=== PATIENT | female | born 1955 | race Caucasian/White ===

== ENCOUNTER → 2016-09-12 | Day surgery (SDC) | payer BC, MEDICAID, OTHER ==
[2016-09-12 11:30] VITALS: BP 145/90
--- NOTE | 2016-09-12 13:20 | PCM.SN ---
- Free Text/Narrative Note: Date: 09/12/16 Start: 929 Stop: 4 Time Out: 934 Procedure: PICC Line placement for Chemotherapy Treatment Diagnosis: Anal Cancer Anesthesia requested for PICC line placement. Patient educated on risk/benefits , allergies reviewed, medication list reviewed, patient agrees to proceed, consent obtained. Patient positioned in supine position. Right arm prepped with 3 chloroprep's, 20 gauge angiocatheter placed without difficulty, sterile drapes placed, and sterile gown, gloves used, along with cap and mask. (Sterile Technique Noted) MicroIntroducer kit used: [facility] PICC 4 mal[place] catheter single lumen advanced without difficulties noted. REF: [id number] LOT: [id number] EXP: 11/09/2017 Catheter advanced and secured at 46cm at the skin. Catheter trimmed at 54cm. Easy blood aspiration noted and catheter flushed with 30ml's of Normal Saline. Mastisol/Steri-Strips placed, along with Tegaderm with antibacterial square noted. Stat-Lock holding device used and dressing dated. Education card given to patient, and patient tolerated procedure well. Thank-you! Palak Downs CRNA
--- NOTE | 2016-09-12 13:28 | CR ---
Chest: Portable supine view of the chest was obtained at time 10:24 AM. Study is centered to the right chest. Comparison: No previous chest x-ray. Right-sided PICC line is seen. Tip lies within the superior vena cava. Heart size is normal. Mild tortuosity of the thoracic aorta is seen. Lungs that are seen appear clear. Incidental surgical clips are noted from prior cholecystectomy. Impression: 1. PICC line with tip lying in the expected region superior vena cava. Diagnostic code #2
--- NOTE | 2016-09-12 13:28 | CR ---
Chest: Portable view of the chest was obtained at time 10:27 AM. Comparison: Previous study performed earlier on the same day. PICC line again noted entering from the right side. Tip lies within the superior vena cava. Lungs are clear. Heart size and mediastinum are stable. Bony structures are grossly intact. Impression: 1. Tip of PICC line within the superior vena cava. 2. Nothing acute is seen. Diagnostic code #2
== END ==
LOC: JD.SDS 08:35
PROVIDERS: ATTEND Internal Medicine Medical Oncology
DX: C21.0 Malignant neoplasm of anus, unspecified (principal)
CPT/HCPCS: 36569; C1751

== ENCOUNTER 2016-11-30 13:31 | Emergency (ER) | payer MEDICAID ==
[2016-11-30 13:42] VITALS: BP 122/78
--- NOTE | 2016-11-30 13:51 | EDM.PDOC ---
ED HPI GENERAL MEDICAL PROBLEM - General Chief Complaint: Allergic Reaction Stated Complaint: POSS ALERGIC REACTION Time Seen by Provider: 11/30/16 13:39 Source of Information: Reports: Patient History Limitations: Reports: No Limitations - History of Present Illness INITIAL COMMENTS - FREE TEXT/NARRATIVE: The patient presents with itching. She says this started yesterday at 3pm. She has no rash except where she scratched there is some redness. She has no new detergents, soaps or lotions. She cannot eat blueberries. She did have some chock hester wine yesterday. She has no shortness of breath or swelling in her throat. Onset: Gradual Duration: Day(s): Location: Reports: Generalized Quality: Reports: Other (Itching) Severity: Moderate Improves with: Reports: None Worsens with: Reports: None Associated Symptoms: Reports: No Other Symptoms - Related Data Allergies Allergy/AdvReac Type Severity Reaction Status Date / Time No Known Allergies Allergy Verified 11/30/16 13:42 Home Meds: Home Meds Prednisone [IJD: predniSONE] 40 mg PO WITHBREAKFAST #10 tab 11/30/16 [Rx] Social & Family History - Tobacco Use Smoking Status *Q: Former Smoker Used Tobacco, but Quit: Yes Month Tobacco Last Used: one month ago Second Hand Smoke Exposure: No - Caffeine Use Caffeine Use: Reports: None - Recreational Drug Use Recreational Drug Use: No ED ROS ALLERGIC REACTION - Review of Systems Review Of Systems: See Below Constitutional: Reports: No Symptoms HEENT: Reports: No Symptoms Respiratory: Reports: No Symptoms Cardiovascular: Reports: No Symptoms Endocrine: Reports: No Symptoms GI/Abdominal: Reports: No Symptoms : Reports: No Symptoms Musculoskeletal: Reports: No Symptoms Skin: Reports: Other (Itching) ED EXAM GENERAL NO PERIP PULSE - Physical Exam Exam: See Below Exam Limited By: No Limitations General Appearance: Alert, No Apparent Distress Ears: Normal External Exam Nose: Normal Inspection Throat/Mouth: Normal Inspection Head: Atraumatic, Normocephalic Neck: Normal Inspection Respiratory/Chest: No Respiratory Distress, Lungs Clear, Normal Breath Sounds Cardiovascular: Regular Rate, Rhythm, No Edema, No Murmur GI/Abdominal: Soft, Non-Tender, No Organomegaly, No Mass Back Exam: Normal Inspection Extremities: Normal Inspection Skin Exam: Other (There is some erythema to her chest back and arms from her itching.) Course - Vital Signs Last Recorded V/S: Last Vital Signs Temp 98.1 F 11/30/16 13:39 Pulse 100 11/30/16 13:39 Resp 18 11/30/16 13:39 BP 122/78 11/30/16 13:39 Pulse Ox 97 11/30/16 13:39 - Re-Assessments/Exams Free Text/Narrative Re-Assessment/Exam: 11/30/16 13:50 She appears to be reacting to something. I will get her on some prednisone, benadryl and pepcid. Departure - Departure Time of Disposition: 13:55 Disposition: Home, Self-Care 01 Condition: good Clinical Impression: Allergic reaction Qualifiers: Encounter type: initial encounter Qualified Code(s): T78.40XA - Allergy, unspecified, initial encounter - Discharge Information Prescriptions: Prednisone [IJD: predniSONE] 40 mg PO WITHBREAKFAST #10 tab Referrals: Greg Duran MD [Primary Care Provider] - 1 Week Forms: ED Department Discharge Additional Instructions: Take the prednisone 2 pills daily for 5 days. Take pepcid 20mg daily for 5 days. Take benadryl 50mg every 6 hours as needed for itching. Please return if you are worse such as swelling in your throat or trouble breathing.
== END 2016-11-30 14:05 | disposition home or self-care (01) ==
LOC: JD.ED 13:31
DX: T78.40XA Allergy, unspecified, initial encounter (principal); Z87.891 Personal history of nicotine dependence
CPT/HCPCS: 99283

== ENCOUNTER 2017-02-06 10:15 | Inpatient (IN) | payer MEDICAID ==
--- NOTE | 2017-02-06 10:53 | EDM.PDOC ---
ED HPI GENERAL MEDICAL PROBLEM - General Chief Complaint: Respiratory Problem Stated Complaint: SOB Time Seen by Provider: 02/06/17 10:44 - History of Present Illness INITIAL COMMENTS - FREE TEXT/NARRATIVE: 1-year-old female presents emergency room with shortness of breath. She is brought in by EMS she was found to be hypoxic at 84%. Patient states the shortness of breath has been going on at least 2 days the timing of this is somewhat vague she denies a sudden onset. The patient has had lots of fatigue following chemotherapy and radiation for colorectal cancer this last winter. Patient was diagnosed with colorectal cancer in July this was followed up with radiation therapy she had a dose of chemotherapy at the onset of the radiation and with the last dose of the radiation. Patient has been somewhat fatigued since this time. Patient states she was diagnosed with stage II colorectal cancer. Patient denies a worsening cough she denies any fevers or chills. She does have a history of a anemia. She is treated for hypertension otherwise denies other medical issues she quit smoking a couple months ago. - Related Data Allergies Allergy/AdvReac Type Severity Reaction Status Date / Time No Known Allergies Allergy Verified 02/06/17 10:27 Home Meds: Home Meds Aspirin [Halfprin] 81 mg PO DAILY 02/06/17 [History] Losartan [Cozaar] 100 mg PO DAILY 02/06/17 [History] amLODIPine [Norvasc] 10 mg PO DAILY 02/06/17 [History] Past Medical History Other HEENT History: wears glasses Cardiovascular History: Reports: Hypertension Gastrointestinal History: Reports: Chronic Diarrhea, GERD Genitourinary History: Reports: Urinary Incontinence [employer] History: Reports: Endocrine/Metabolic History: Reports: Osteoporosis Oncologic (Cancer) History: Reports: Other (See Below) Other Oncologic History: anal - Past Surgical History GI Surgical History: Reports: Cholecystectomy, Colonoscopy Other GI Surgeries/Procedures: anal tumor removed x 2 Social & Family History - Tobacco Use Smoking Status *Q: Current Every Day Smoker Years of Tobacco use: 40 Packs/Tins Daily: 1 Used Tobacco, but Quit: Yes Month Tobacco Last Used: october Second Hand Smoke Exposure: No - Caffeine Use Caffeine Use: Reports: Coffee - Recreational Drug Use Recreational Drug Use: No ED ROS GENERAL - Review of Systems Review Of Systems: See Below Constitutional: Denies: Fever, Chills HEENT: Reports: No Symptoms Respiratory: Reports: Shortness of Breath. Denies: Wheezing, Pleuritic Chest Pain, Cough, Sputum Cardiovascular: Denies: Chest Pain, Edema, Palpitations, Syncope GI/Abdominal: Reports: No Symptoms : Reports: No Symptoms Musculoskeletal: Reports: No Symptoms Neurological: Reports: No Symptoms ED EXAM, GENERAL - Physical Exam Exam: See Below Exam Limited By: No Limitations General Appearance: Alert, No Apparent Distress Eye Exam: Bilateral Eye: Normal Inspection Ears: Normal External Exam, Normal Canal, Hearing Grossly Normal, Normal TMs Nose: Normal Inspection, Normal Mucosa Throat/Mouth: Normal Inspection, Normal Lips, Normal Oropharynx. No: Perioral Cyanosis Neck: Normal Inspection, Supple, Non-Tender, Full Range of Motion. No: Lymphadenopathy (L), Lymphadenopathy (R) Respiratory/Chest: No Respiratory Distress, Other (Slightly diminished breath sounds faint intermittent bibasilar crackles no significant wheezes) Cardiovascular: Regular Rate, Rhythm, No Edema, No Murmur GI/Abdominal: Normal Bowel Sounds, Soft, Non-Tender EKG INTERPRETATION EKG Date: 02/06/17 Rhythm: NSR [place]: Normal P-Wave: Present QRS: Other (Low voltage) ST-T: Normal QT: Normal EKG Interpretation Comments: Borderline EKG Course - Vital Signs Last Recorded V/S: Last Vital Signs Temp 36.2 C 02/06/17 10:33 Pulse 80 02/06/17 10:33 Resp 15 02/06/17 10:33 BP 138/94 H 02/06/17 10:33 Pulse Ox 92 L 02/06/17 11:11 - Orders/Labs/Meds Orders: Active Orders 24 hr Category Date Time Status EKG Documentation Completion [RC] STAT Care 02/06/17 14:19 Active RT Aerosol Therapy [RC] ASDIRECTED Care 02/06/17 10:55 Active Ang Chest [CT] Stat Exams 02/06/17 13:03 Taken CULTURE BLOOD [BC] Stat Lab 02/06/17 14:18 Ordered CULTURE BLOOD [BC] Stat Lab 02/06/17 14:18 Ordered MYCOPLASMA PNEUMONIAE IGM AB [CHEM] Stat Lab 02/06/17 10:55 Received Sodium Chloride 0.9% [Normal Saline] 100 ml Med 02/06/17 13:15 Active IV ASDIRECTED Sodium Chloride 0.9% [Saline Flush] Med 02/06/17 13:06 Active 10 ml FLUSH ONETIME PRN cefTRIAXone [Rocephin] Med 02/06/17 14:30 Once 1,000 mg IVPUSH ONETIME ONE Blood Culture x2 Reflex Set [OM.PC] Stat Oth 02/06/17 14:18 Ordered Medication Orders Ceftriaxone Sodium (Rocephin) 1,000 mg IVPUSH ONETIME ONE Stop: 02/06/17 14:31 Sodium Chloride (Normal Saline) 100 mls @ 80 mls/hr IV ASDIRECTED JILLIAN Last Admin: 02/06/17 13:24 Dose: 80 mls/hr Sodium Chloride (Saline Flush) 10 ml FLUSH ONETIME PRN PRN Reason: IV FLUSH Last Admin: 02/06/17 13:24 Dose: 10 ml Labs: Laboratory Tests 02/06/17 02/06/17 02/06/17 Range/Units 10:55 10:55 10:55 WBC 6.82 (3.98-10.04) K/mm3 RBC 3.35 L (3.98-5.22) M/mm3 Hgb 11.6 (11.2-15.7) gm/L Hct 36.4 (34.1-44.9) % MCV 108.7 H (79.4-94.8) fl MCH 34.6 H (25.6-32.2) pg MCHC 31.9 L (32.2-35.5) g/dl RDW Std Deviation 55.7 H (36.4-46.3) fL Plt Count 317 (182-369) K/mm3 MPV 9.1 L (9.4-12.3) fl Neutrophils % (Manual) 77 H (40-60) % Band Neutrophils % 1 (0-10) % Lymphocytes % (Manual) 11 L (20-40) % Atypical Lymphs % 0 % Monocytes % (Manual) 7 (2-10) % Eosinophils % (Manual) 4 (0.7-5.8) % Basophils % (Manual) 0 L (0.1-1.2) Platelet Estimate Adequate Plt Morphology Comment Normal Polychromasia 1+ slight Macrocytosis 2+ moderate RBC Morph Comment Not Reportable PT 10.3 (8.0-13.0) SECONDS INR 0.95 APTT 29 (22-36) SECONDS Puncture Site ABG pH (7.35-7.45) ABG pCO2 (35.0-45.0) mmHg ABG pO2 (80.0-100.0) mmHg ABG HCO3 (22.0-26.0) meq/L ABG O2 Saturation (96.0-97.0) % ABG Base Excess (-2-2.0) Khris Test A-a Gradient mmHg O2 Delivery Device Oxygen Flow Rate FiO2 (21.00-100.00) % Sodium 142 (136-145) mEq/L Potassium 4.0 (3.5-5.1) mEq/L Chloride 108 H (98-107) mEq/L Carbon Dioxide 27 (21-32) mEq/L Anion Gap 11.0 (5-15) BUN 13 (7-18) mg/dL Creatinine 0.9 (0.55-1.02) mg/dL Est Cr Clr Drug Dosing 56.68 mL/min Estimated GFR (MDRD) > 60 (>60) mL/min BUN/Creatinine Ratio 14.4 (14-18) Glucose 100 (80-115) mg/dL Calcium 9.0 (8.5-10.1) mg/dL Total Bilirubin 0.5 (0.2-1.0) mg/dL AST 14 L (15-37) U/L ALT 17 (14-59) U/L Alkaline Phosphatase 67 (46-116) U/L Troponin I < 0.017 (0.00-0.056) ng/mL B-Natriuretic Peptide (0-100) pg/mL Total Protein 6.2 L (6.4-8.2) g/dl Albumin 3.2 L (3.4-5.0) g/dl Globulin 3.0 gm/dL Albumin/Globulin Ratio 1.1 (1-2) 02/06/17 02/06/17 Range/Units 10:55 10:55 WBC (3.98-10.04) K/mm3 RBC (3.98-5.22) M/mm3 Hgb (11.2-15.7) gm/L Hct (34.1-44.9) % MCV (79.4-94.8) fl MCH (25.6-32.2) pg MCHC (32.2-35.5) g/dl RDW Std Deviation (36.4-46.3) fL Plt Count (182-369) K/mm3 MPV (9.4-12.3) fl Neutrophils % (Manual) (40-60) % Band Neutrophils % (0-10) % Lymphocytes % (Manual) (20-40) % Atypical Lymphs % % Monocytes % (Manual) (2-10) % Eosinophils % (Manual) (0.7-5.8) % Basophils % (Manual) (0.1-1.2) Platelet Estimate Plt Morphology Comment Polychromasia Macrocytosis RBC Morph Comment PT (8.0-13.0) SECONDS INR APTT (22-36) SECONDS Puncture Site Lt radial ABG pH 7.45 (7.35-7.45) ABG pCO2 34.3 L (35.0-45.0) mmHg ABG pO2 63.0 L (80.0-100.0) mmHg ABG HCO3 23.2 (22.0-26.0) meq/L ABG O2 Saturation 89.5 L (96.0-97.0) % ABG Base Excess 0.1 (-2-2.0) Khris Test Positive A-a Gradient 99 mmHg O2 Delivery Device Nasal cannula Oxygen Flow Rate 3.0 FiO2 32.00 (21.00-100.00) % Sodium (136-145) mEq/L Potassium (3.5-5.1) mEq/L Chloride (98-107) mEq/L Carbon Dioxide (21-32) mEq/L Anion Gap (5-15) BUN (7-18) mg/dL Creatinine (0.55-1.02) mg/dL Est Cr Clr Drug Dosing mL/min Estimated GFR (MDRD) (>60) mL/min BUN/Creatinine Ratio (14-18) Glucose (80-115) mg/dL Calcium (8.5-10.1) mg/dL Total Bilirubin (0.2-1.0) mg/dL AST (15-37) U/L ALT (14-59) U/L Alkaline Phosphatase (46-116) U/L Troponin I (0.00-0.056) ng/mL B-Natriuretic Peptide 96 (0-100) pg/mL Total Protein (6.4-8.2) g/dl Albumin (3.4-5.0) g/dl Globulin gm/dL Albumin/Globulin Ratio (1-2) Meds: Medications Generic Name Dose Route Start Last Admin Trade Name Cruzitoq PRN Reason Stop Dose Admin Ceftriaxone Sodium 1,000 mg 02/06/17 14:30 Rocephin IVPUSH 02/06/17 14:31 ONETIME ONE Sodium Chloride 100 mls @ 80 mls/hr 02/06/17 13:15 02/06/17 13:24 Normal Saline IV 80 mls/hr ASDIRECTED JILLIAN Administration Sodium Chloride 10 ml 02/06/17 13:06 02/06/17 13:24 Saline Flush FLUSH 10 ml ONETIME PRN Administration IV FLUSH Discontinued Medications Generic Name Dose Route Start Last Admin Trade Name Cruzitoq PRN Reason Stop Dose Admin Albuterol/Ipratropium 3 ml 02/06/17 10:55 02/06/17 11:11 Duoneb 3.0-0.5 Mg/3 Ml NEB 02/06/17 10:56 3 ml ONETIME ONE Administration Iopamidol 100 ml 02/06/17 13:06 02/06/17 13:24 [id number] (76%) IVPUSH 02/06/17 13:07 60 ml ONETIME ONE Administration - Re-Assessments/Exams Free Text/Narrative Re-Assessment/Exam: 02/06/17 14:29 The cause of this patient's hypoxia is unknown. Chest x-ray showed some mild pulmonary vascular congestion BNP normal. With her history of cancer this is followed up with a CTA that was not diagnostic it did show a couple small bilateral pleural effusions no PEs soft tissue fullness within the right hilum subcarina and within the pretracheal and paratracheal regions most likely due to prior adenopathy and some bibasilar atelectasis adjacent to the pleural effusions. Case discussed with Dr. Mckenzie. MCG pending. Mycoplasma level pending should be started empirically on antibiotics. Departure - Departure Time of Disposition: 14:26 Disposition: Admitted As Inpatient 66 Clinical Impression: Hypoxia, Shortness of breath - Discharge Information Forms: ED Department Discharge - My Orders Last 24 Hours: My Active Orders 02/06/17 10:55 RT Aerosol Therapy [RC] ASDIRECTED MYCOPLASMA PNEUMONIAE IGM AB [CHEM] Stat 02/06/17 13:03 Ang Chest [CT] Stat 02/06/17 13:06 Sodium Chloride 0.9% [Saline Flush] 10 ml FLUSH ONETIME PRN 02/06/17 13:15 Sodium Chloride 0.9% [Normal Saline] 100 ml IV ASDIRECTED 02/06/17 14:18 CULTURE BLOOD [BC] Stat CULTURE BLOOD [BC] Stat Blood Culture x2 Reflex Set [OM.PC] Stat 02/06/17 14:19 EKG Documentation Completion [RC] STAT 02/06/17 14:30 cefTRIAXone [Rocephin] 1,000 mg IVPUSH ONETIME ONE - Assessment/Plan Last 24 Hours: My Active Orders 02/06/17 10:55 RT Aerosol Therapy [RC] ASDIRECTED MYCOPLASMA PNEUMONIAE IGM AB [CHEM] Stat 02/06/17 13:03 Ang Chest [CT] Stat 02/06/17 13:06 Sodium Chloride 0.9% [Saline Flush] 10 ml FLUSH ONETIME PRN 02/06/17 13:15 Sodium Chloride 0.9% [Normal Saline] 100 ml IV ASDIRECTED 02/06/17 14:18 CULTURE BLOOD [BC] Stat CULTURE BLOOD [BC] Stat Blood Culture x2 Reflex Set [OM.PC] Stat 02/06/17 14:19 EKG Documentation Completion [RC] STAT 02/06/17 14:30 cefTRIAXone [Rocephin] 1,000 mg IVPUSH ONETIME ONE
[2017-02-06] MEDS ORDERED: Albuterol/Ipratropium 3.0-0.5 MG/3 ML Neb Soln NEB ONE (10:55)
--- NOTE | 2017-02-06 12:56 | CR ---
Chest: Portable view of the chest was obtained. Comparison: Previous chest x-ray of 09/12/16. Left-sided infusion port is seen. Heart size and mediastinum are within normal limits. Pulmonary vessels are questionably increased. Lungs otherwise are clear. Impression: 1. Questionably increased pulmonary vessels which may represent slight pulmonary vascular congestion or fluid overload. 2. Left-sided infusion port. Portable chest x-ray is otherwise unremarkable. Diagnostic code #3
[2017-02-06] MEDS ORDERED: Sodium Chloride 0.9% 10 ML Syringe FLUSH PRN (13:06)
[2017-02-06] MEDS ORDERED: Iopamidol 755 Mg/ML 100 ML Bottle IVPUSH ONE (13:06)
[2017-02-06] MEDS ORDERED: Sodium Chloride 0.9% 100 ML IV SCH (13:15)
[2017-02-06] MEDS ORDERED: cefTRIAXone 1,000 MG VIAL IVPUSH ONE (14:30)
--- NOTE | 2017-02-06 14:33 | CT ---
CT chest Technique: Multiple axial sections through the chest were obtained. Intravenous contrast was utilized. Study has been performed as a pulmonary angiogram protocol. Comparison: Previous chest x-ray performed earlier on same day (11:22 AM). Findings: Pulmonary arteries are well-opacified. No filling defects are seen to indicate pulmonary embolism. Small bilateral pleural effusions are seen. Increased density within both lung bases adjacent to the pleural effusions are seen most likely due to atelectasis. There is mild increased soft tissue density around the right hilum and within the subcarinal region as well as within the pretracheal and paratracheal regions possibly due to treated adenopathy. Mild emphysematous changes are seen. Mild haziness around the pulmonary vessels are seen raising the possibility of mild pulmonary vascular congestion with differential also including congestion secondary to chemotherapy reaction. No alveolar type infiltrates are seen. Mild coronary artery calcification is seen. Bone window settings shows mild degenerative change within the spine. Left-sided infusion catheter is seen. Impression: 1. Small bilateral pleural effusions. Haziness around the pulmonary vessels suggestive of mild pulmonary vascular congestion. Heart does not appear enlarged and findings could represent acute cardiac event causing these findings versus reaction from chemotherapy or other noncardiogenic etiology. 2. No findings of pulmonary embolism. 3. Soft tissue fullness within the right hilum, subcarinal and within the pretracheal and paratracheal regions most likely due to treated adenopathy. 4. Bibasilar atelectasis adjacent to the pleural effusions. Diagnostic code #3
[2017-02-06] MEDS ORDERED: cefTRIAXone 1 GM in Sodium Chloride 0.9% 100 ML IV ONE (14:36)
[2017-02-06] MEDS ORDERED: Azithromycin 500 MG in Sodium Chloride 0.9% 250 ML IV ONE (14:37)
--- NOTE | 2017-02-06 16:57 | PCM.HP ---
H&P History of Present Illness - General Date of Service: 02/06/17 Admit Problem/Dx: Admission Diagnosis/Problem Admission Diagnosis/Problem Hypoxia Source of Information: Patient, Provider History Limitations: Reports: No Limitations - History of Present Illness Initial Comments - Free Text/Narative: 61 year old female with SOB, history of colorectal CA, stage II is admitted with pneumonia. She was found to be hypoxic prior to arrival to the ED. Denies sick contact, pleuritic CP, N/V, abdominal pain, or recent travel. Onset of Symptoms: Reports: Gradual Duration of Symptoms: Reports: Day(s): Location: Reports: Chest Severity: Moderate Improves with: Reports: Medication Worsens with: Reports: Movement Associated Symptoms: Reports: Shortness of Breath - Related Data Allergies/Adverse Reactions: Allergies Allergy/AdvReac Type Severity Reaction Status Date / Time blueberry Allergy Hives Verified 02/06/17 16:08 [place] Allergy Hives Uncoded 02/06/17 16:08 Home Medications: Home Meds Aspirin [Halfprin] 81 mg PO DAILY 02/06/17 [History] Ibuprofen [Advil] 200 mg PO Q6H PRN 02/06/17 [History] Losartan [Cozaar] 100 mg PO DAILY 02/06/17 [History] amLODIPine [Norvasc] 10 mg PO DAILY 02/06/17 [History] Past Medical History Other HEENT History: wears glasses Cardiovascular History: Reports: Hypertension Gastrointestinal History: Reports: Chronic Diarrhea, GERD Genitourinary History: Reports: Urinary Incontinence [employer] History: Reports: Endocrine/Metabolic History: Reports: Osteoporosis Oncologic (Cancer) History: Reports: Other (See Below) Other Oncologic History: anal - Past Surgical History GI Surgical History: Reports: Cholecystectomy, Colonoscopy Other GI Surgeries/Procedures: anal tumor removed x 2 Social & Family History - Tobacco Use Smoking Status *Q: Former Smoker Years of Tobacco use: 40 Packs/Tins Daily: 1 Used Tobacco, but Quit: Yes Month Tobacco Last Used: December Second Hand Smoke Exposure: No - Caffeine Use Caffeine Use: Reports: Coffee, Soda Other Caffeine Use: daily in am. soda in afternoon - Recreational Drug Use Recreational Drug Use: No H&P Review of Systems - Review of Systems: Review Of Systems: See Below General: Reports: Malaise, Weakness HEENT: Reports: No Symptoms Pulmonary: Reports: Shortness of Breath, Pleuritic Chest Pain Cardiovascular: Reports: No Symptoms Gastrointestinal: Reports: No Symptoms Genitourinary: Reports: No Symptoms Musculoskeletal: Reports: No Symptoms Skin: Reports: No Symptoms Psychiatric: Reports: No Symptoms Neurological: Reports: No Symptoms Hematologic/Lymphatic: Reports: No Symptoms Immunologic: Reports: No Symptoms Exam - Exam Exam: See Below - Vital Signs Vital Signs: Last Vital Signs Temp 36.2 C 02/06/17 10:33 Pulse 87 02/06/17 16:03 Resp 12 02/06/17 16:03 BP 129/80 02/06/17 16:03 Pulse Ox 92 L 02/06/17 16:03 Weight: 75.115 kg - Exam Quality Assessment: Supplemental Oxygen General: Alert, Oriented, Cooperative HEENT: Nares Patent, Normal Nasal Septum, Posterior Pharynx Clear, Pupils Equal , Pupils Reactive Neck: Supple, Trachea Midline Lungs: Normal Respiratory Effort, Decreased Breath Sounds, Wheezing Cardiovascular: Regular Rate GI/Abdominal Exam: Normal Bowel Sounds, Soft, Non-Tender, No Organomegaly, No Distention (Female) Exam: Deferred Rectal (Female) Exam: Deferred Back Exam: Normal Inspection Extremities: Normal Inspection Skin: Warm Neurological: Cranial Nerves Intact Neuro Extensive - Mental Status: Alert, Oriented x3, Normal Mood/Affect, Normal Cognition, Memory Intact Neuro Extensive - Motor, Sensory, Reflexes: CN II-XII Intact Psychiatric: Alert, Normal Affect, Normal Mood - Patient Data Lab Results Last 24 hrs: Laboratory Results - last 24 hr 02/06/17 Range/Units 16:00 Urine Color Light yellow (Yellow) Urine Appearance Clear (Clear) Urine pH 7.0 (5.0-8.0) Ur Specific [place] 1.015 (1.005-1.030) Urine Protein Negative (Negative) Urine Glucose (UA) Negative (Negative) Urine Ketones Negative (Negative) Urine Occult Blood Negative (Negative) Urine Nitrite Negative (Negative) Urine Bilirubin Negative (Negative) Urine Urobilinogen 0.2 (0.2-1.0) Ur Leukocyte Esterase Trace H (Negative) Result Diagrams: 02/06/17 10:55 02/06/17 10:55 *Q Meaningful Use (ADM) - VTE *Q VTE Criteria *Q: - Stroke *Q Stroke Criteria *Q: - AMI *Q AMI Criteria *Q: - Problem List (1) Pneumonia SNOMED Code(s): 881453066 ICD Code: J18.9 - PNEUMONIA, UNSPECIFIED ORGANISM Status: Acute Current Visit: Yes (2) Colorectal cancer, stage II SNOMED Code(s): 20614240, 30569789 ICD Code: C19 - MALIGNANT NEOPLASM OF RECTOSIGMOID JUNCTION Status: Acute Current Visit: Yes (3) Hypertension SNOMED Code(s): 77964402 ICD Code: I10 - ESSENTIAL (PRIMARY) HYPERTENSION Status: Acute Current Visit: Yes (4) Hypoxia SNOMED Code(s): 171601890, 312745913 ICD Code: R09.02 - HYPOXEMIA Status: Acute Current Visit: Yes (5) Shortness of breath SNOMED Code(s): 735048166 ICD Code: R06.02 - SHORTNESS OF BREATH Status: Acute Current Visit: Yes Problem List Initiated/Reviewed/Updated: Yes Orders Last 24hrs: Active Orders 24 hr Category Date Time Status Patient Status [ADT] Stat ADT 02/06/17 15:33 Active STREP PNEUMONIAE ANTIGEN [MREF] Routine Lab 02/06/17 16:00 Received UA W/MICROSCOPIC [URIN] Routine Lab 02/06/17 16:00 Results Medication Orders Sodium Chloride (Normal Saline) 100 mls @ 80 mls/hr IV ASDIRECTED JILLIAN Last Admin: 02/06/17 13:24 Dose: 80 mls/hr Sodium Chloride (Saline Flush) 10 ml FLUSH ONETIME PRN PRN Reason: IV FLUSH Last Admin: 02/06/17 13:24 Dose: 10 ml Assessment/Plan Comment:: Impression: Hypoxia/empiric Rx for PNA; CTA was unremarkable HTN-multiple meds Former smoker History of Colorectal Cancer, stage II Borderline UTI Anemia, macrocytosis Plan: IV antibiotics Nebs O2, keep Sat>92 % Habitrol as needed DVT prophylaxis Home meds Daily labs SW/PT/OT consults
[2017-02-06] MEDS ORDERED: Albuterol 0.083% 2.5 MG/3 ML Neb Soln NEB PRN (18:03)
[2017-02-06] MEDS ORDERED: Acetaminophen 325 MG Tab PO PRN (18:07)
[2017-02-06] MEDS ORDERED: Sodium Chloride 0.9% 1,000 ML IV SCH (19:00)
[2017-02-06] MEDS: Losartan 100 MG Tab PO SCH (20:27)
[2017-02-06] MEDS: Albuterol/Ipratropium 3.0-0.5 MG/3 ML Neb Soln NEB SCH (21:33)
[2017-02-07] MEDS: Albuterol/Ipratropium 3.0-0.5 MG/3 ML Neb Soln NEB SCH ×4 (06:32→21:34)
[2017-02-07] MEDS: amLODIPine 10 MG Tab PO SCH (10:03)
[2017-02-07] MEDS: Aspirin 81 MG Tab.EC PO SCH (10:03)
[2017-02-07] MEDS: Losartan 100 MG Tab PO SCH ×2 (10:03→20:08)
[2017-02-07] MEDS: cefTRIAXone 2 GM in Sodium Chloride 0.9% 100 ML IV SCH (10:04)
--- NOTE | 2017-02-07 11:49 | PCM.PN ---
- General Info Date of Service: 02/07/17 Functional Status: Reports: Pain Controlled, Tolerating Diet, Ambulating, Urinating - Review of Systems General: Reports: Weakness HEENT: Reports: No Symptoms Pulmonary: Reports: Shortness of Breath Cardiovascular: Reports: No Symptoms Gastrointestinal: Reports: No Symptoms Genitourinary: Reports: No Symptoms Musculoskeletal: Reports: No Symptoms Skin: Reports: No Symptoms Neurological: Reports: No Symptoms Psychiatric: Reports: No Symptoms - Patient Data Vitals - Most Recent: Last Vital Signs Temp 37.3 C 02/07/17 08:27 Pulse 94 02/07/17 08:27 Resp 12 02/07/17 08:27 BP 109/58 L 02/07/17 10:03 Pulse Ox 92 L 02/07/17 10:20 Weight - Most Recent: 75.07 kg I&O - Last 24 Hours: Intake & Output 02/06/17 02/07/17 02/07/17 22:59 06:59 14:59 Intake Total 250 950 Output Total 600 Balance 250 350 Lab Results Last 24 Hours: Laboratory Results - last 24 hr 02/06/17 02/07/17 Range/Units 16:00 05:38 Vitamin B12 180 L (193-986) pg/ml Folate 9.7 (8.6-58.9) ng/mL Urine Color Light yellow (Yellow) Urine Appearance Clear (Clear) Urine pH 7.0 (5.0-8.0) Ur Specific [place] 1.015 (1.005-1.030) Urine Protein Negative (Negative) Urine Glucose (UA) Negative (Negative) Urine Ketones Negative (Negative) Urine Occult Blood Negative (Negative) Urine Nitrite Negative (Negative) Urine Bilirubin Negative (Negative) Urine Urobilinogen 0.2 (0.2-1.0) Ur Leukocyte Esterase Trace H (Negative) Urine RBC 0-5 (0-5) /hpf Urine WBC 0-5 (0-5) /hpf Ur Epithelial Cells 0-5 (0-5) /hpf Urine Bacteria Occasional (FEW) /hpf Urine Mucus Not seen (FEW) /hpf Med Orders - Current: Current Medications Acetaminophen (Tylenol) 650 mg PO Q6H PRN PRN Reason: Pain (moderate 4-6) Albuterol (Proventil Neb Soln) 2.5 mg NEB Q4HRRT PRN PRN Reason: Shortness of Breath Albuterol/Ipratropium (Duoneb 3.0-0.5 Mg/3 Ml) 3 ml NEB QIDRT [facility] Last Admin: 02/07/17 10:20 Dose: 3 ml Amlodipine Besylate (Norvasc) 10 mg PO DAILY [facility] Last Admin: 02/07/17 10:03 Dose: 10 mg Aspirin (Halfprin) 81 mg PO DAILY [facility] Last Admin: 02/07/17 10:03 Dose: 81 mg Azithromycin 500 mg/ Sodium (Chloride) 250 mls @ 250 mls/hr IV Q24H [facility] Ceftriaxone Sodium 2 gm/ (Sodium Chloride) 100 mls @ 200 mls/hr IV Q24H [facility] Last Admin: 02/07/17 10:04 Dose: 200 mls/hr Losartan Potassium (Cozaar) 50 mg PO BID [facility] Last Admin: 02/07/17 10:03 Dose: 50 mg Sodium Chloride (Saline Flush) 10 ml FLUSH ONETIME PRN PRN Reason: IV FLUSH Last Admin: 02/06/17 13:24 Dose: 10 ml Discontinued Medications Albuterol/Ipratropium (Duoneb 3.0-0.5 Mg/3 Ml) 3 ml NEB ONETIME ONE Stop: 02/06/17 10:56 Last Admin: 02/06/17 11:11 Dose: 3 ml Ceftriaxone Sodium (Rocephin) 1,000 mg IVPUSH ONETIME ONE Stop: 02/06/17 14:31 Last Admin: 02/06/17 14:38 Dose: Not Given Sodium Chloride (Normal Saline) 100 mls @ 80 mls/hr IV ASDIRECTED [facility] Last Admin: 02/06/17 13:24 Dose: 80 mls/hr Ceftriaxone Sodium 1 gm/ (Sodium Chloride) 100 mls @ 200 mls/hr IV ONETIME ONE Stop: 02/06/17 15:05 Last Admin: 02/06/17 15:16 Dose: 200 mls/hr Azithromycin 500 mg/ Sodium (Chloride) 250 mls @ 250 mls/hr IV ONETIME ONE Stop: 02/06/17 15:36 Last Admin: 02/06/17 16:16 Dose: 250 mls/hr Sodium Chloride (Normal Saline) 1,000 mls @ 75 mls/hr IV ASDIRECTED [facility] Stop: 02/07/17 01:00 Last Admin: 02/06/17 20:28 Dose: 75 mls/hr Iopamidol (Isovue-370 (76%)) 100 ml IVPUSH ONETIME ONE Stop: 02/06/17 13:07 Last Admin: 02/06/17 13:24 Dose: 60 ml - Exam Quality Assessment: DVT Prophylaxis General: Alert, Oriented, Cooperative, No Acute Distress HEENT: Pupils Equal, Pupils Reactive, EOMI, Mucous Membr. Moist/[place] Neck: Supple, Trachea Midline, No JVD Lungs: Normal Respiratory Effort, Decreased Breath Sounds Cardiovascular: Regular Rate, Regular Rhythm GI/Abdominal Exam: Normal Bowel Sounds, Soft, Non-Tender, No Organomegaly, No Distention (Female) Exam: Deferred Back Exam: Normal Inspection Extremities: Normal Inspection Skin: Warm Neurological: No New Focal Deficit, Normal Speech Psy/Mental Status: Alert, Normal Affect, Normal Mood - Problem List & Annotations (1) Pneumonia SNOMED Code(s): 937971703 Code(s): J18.9 - PNEUMONIA, UNSPECIFIED ORGANISM Status: Acute Current Visit: Yes (2) Colorectal cancer, stage II SNOMED Code(s): 34055691, 56995443 Code(s): C19 - MALIGNANT NEOPLASM OF RECTOSIGMOID JUNCTION Status: Acute Current Visit: Yes (3) Hypertension SNOMED Code(s): 66772451 Code(s): I10 - ESSENTIAL (PRIMARY) HYPERTENSION Status: Acute Current Visit: Yes (4) Hypoxia SNOMED Code(s): 169759038, 316051403 Code(s): R09.02 - HYPOXEMIA Status: Acute Current Visit: Yes (5) Shortness of breath SNOMED Code(s): 375211062 Code(s): R06.02 - SHORTNESS OF BREATH Status: Acute Current Visit: Yes - Problem List Review Problem List Initiated/Reviewed/Updated: Yes - My Orders Last 24 Hours: My Active Orders 02/06/17 16:00 CULTURE URINE [RM] Routine STREP PNEUMONIAE ANTIGEN [MREF] Routine 02/06/17 18:03 Albuterol [Proventil Neb Soln] 2.5 mg NEB Q4HRRT PRN 02/06/17 18:04 Incentive Spirometry [RT Incentive Spirometry] [RC] ASDIRECTED 02/06/17 18:07 Acetaminophen [Tylenol] 650 mg PO Q6H PRN 02/06/17 18:19 Oxygen Therapy [RC] ASDIRECTED Resuscitation Status Routine 02/06/17 21:00 Albuterol/Ipratropium [DuoNeb 3.0-0.5 MG/3 ML] 3 ml NEB QIDRT Losartan [Cozaar] 50 mg PO BID 02/06/17 Dinner Cardiac [Heart Healthy Diet] [DIET] 02/07/17 09:00 Aspirin [Halfprin] 81 mg PO DAILY amLODIPine [Norvasc] 10 mg PO DAILY cefTRIAXone [Rocephin] 2 gm Sodium Chloride 0.9% [Normal Saline] 100 ml IV Q24H 02/07/17 14:00 Azithromycin [Zithromax] 500 mg Sodium Chloride 0.9% [Normal Saline] 250 ml IV Q24H - Plan Plan:: Impression: Hypoxia/empiric Rx for PNA; CTA was unremarkable Zithromax/Rocephin HTN-multiple meds Former smoker History of Colorectal Cancer, stage II Borderline UTI Anemia, macrocytosis Plan: IV antibiotics Nebs O2, keep Sat>92 % Habitrol as needed DVT prophylaxis Home meds Daily labs SW/PT/OT consults
[2017-02-07] MEDS: Azithromycin 500 MG in Sodium Chloride 0.9% 250 ML IV SCH (13:52)
[2017-02-07] MEDS: Enoxaparin 40 MG/0.4 ML Syringe SUBCUT SCH (18:50)
[2017-02-08] MEDS: Albuterol/Ipratropium 3.0-0.5 MG/3 ML Neb Soln NEB SCH ×4 (06:57→20:59)
[2017-02-08] MEDS: Aspirin 81 MG Tab.EC PO SCH (08:13)
[2017-02-08] MEDS: amLODIPine 10 MG Tab PO SCH (08:15)
[2017-02-08] MEDS: Losartan 100 MG Tab PO SCH ×2 (08:16→20:38)
[2017-02-08] MEDS: cefTRIAXone 2 GM in Sodium Chloride 0.9% 100 ML IV SCH (08:17)
[2017-02-08] MEDS: methylPREDNISolone Sodium Succinate 125 MG/2 ML SDV IVPUSH SCH ×2 (11:10→17:30)
--- NOTE | 2017-02-08 12:57 | PCM.PN ---
- General Info Date of Service: 02/08/17 Functional Status: Reports: Pain Controlled, Tolerating Diet, Ambulating, Urinating - Review of Systems General: Reports: No Symptoms HEENT: Reports: No Symptoms Pulmonary: Reports: Shortness of Breath Cardiovascular: Reports: No Symptoms Gastrointestinal: Reports: No Symptoms Genitourinary: Reports: No Symptoms Musculoskeletal: Reports: No Symptoms Skin: Reports: No Symptoms Neurological: Reports: No Symptoms Psychiatric: Reports: No Symptoms - Patient Data Vitals - Most Recent: Last Vital Signs Temp 37.2 C 02/08/17 08:18 Pulse 95 02/08/17 08:15 Resp 14 02/08/17 08:15 BP 134/89 02/08/17 08:16 Pulse Ox 94 L 02/08/17 10:22 Weight - Most Recent: 75.07 kg I&O - Last 24 Hours: Intake & Output 02/07/17 02/08/17 02/08/17 22:59 06:59 14:59 Intake Total 1960 600 180 Output Total 1000 1900 Balance 960 -1300 180 Lab Results Last 24 Hours: Laboratory Results - last 24 hr 02/08/17 02/08/17 Range/Units 05:54 05:54 WBC 7.05 (3.98-10.04) K/mm3 RBC 3.09 L (3.98-5.22) M/mm3 Hgb 10.6 L (11.2-15.7) gm/L Hct 33.4 L (34.1-44.9) % MCV 108.1 H (79.4-94.8) fl MCH 34.3 H (25.6-32.2) pg MCHC 31.7 L (32.2-35.5) g/dl RDW Std Deviation 56.3 H (36.4-46.3) fL Plt Count 302 (182-369) K/mm3 MPV 8.9 L (9.4-12.3) fl Neut % (Auto) 79.0 H (34.0-71.1) % Lymph % (Auto) 6.4 L (19.3-51.7) % [place] % (Auto) 10.4 (4.7-12.5) % Eos % (Auto) 3.8 (0.7-5.8) Baso % (Auto) 0.4 (0.1-1.2) % Neut # (Auto) 5.57 (1.56-6.13) K/mm3 Lymph # (Auto) 0.45 L (1.18-3.74) K/mm3 [place] # (Auto) 0.73 H (0.24-0.36) K/mm3 Eos # (Auto) 0.27 (0.04-0.36) K/mm3 Baso # (Auto) 0.03 (0.01-0.08) K/mm3 Manual Slide Review Abnormal smear Sodium 143 (136-145) mEq/L Potassium 4.0 (3.5-5.1) mEq/L Chloride 109 H (98-107) mEq/L Carbon Dioxide 24 (21-32) mEq/L Anion Gap 14.0 (5-15) BUN 13 (7-18) mg/dL Creatinine 0.8 (0.55-1.02) mg/dL Est Cr Clr Drug Dosing 63.77 mL/min Estimated GFR (MDRD) > 60 (>60) mL/min BUN/Creatinine Ratio 16.3 (14-18) Glucose 99 (80-115) mg/dL Calcium 8.5 (8.5-10.1) mg/dL Magnesium 1.9 (1.8-2.4) mg/dl C-Reactive Protein 2.4 H* (<1.0) mg/dL [place] Results Last 24 Hours: Microbiology 02/06/17 15:15 Aerobic Blood Culture - Preliminary Blood - Venous - Lab Draw NO GROWTH AFTER 1 DAY Anaerobic Blood Culture - Preliminary NO GROWTH AFTER 1 DAY 02/06/17 15:10 Aerobic Blood Culture - Preliminary Blood - Venous NO GROWTH AFTER 1 DAY Anaerobic Blood Culture - Preliminary NO GROWTH AFTER 1 DAY 02/06/17 16:00 Urine Culture - Preliminary Urine, Clean Catch NO GROWTH AFTER 1 DAY Med Orders - Current: Current Medications Acetaminophen (Tylenol) 650 mg PO Q6H PRN PRN Reason: Pain (moderate 4-6) Albuterol (Proventil Neb Soln) 2.5 mg NEB Q4HRRT PRN PRN Reason: Shortness of Breath Albuterol/Ipratropium (Duoneb 3.0-0.5 Mg/3 Ml) 3 ml NEB QIDRT [facility] Last Admin: 02/08/17 10:21 Dose: 3 ml Amlodipine Besylate (Norvasc) 10 mg PO DAILY [facility] Last Admin: 02/08/17 08:15 Dose: 10 mg Aspirin (Halfprin) 81 mg PO DAILY [facility] Last Admin: 02/08/17 08:13 Dose: 81 mg Enoxaparin Sodium (Lovenox) 40 mg SUBCUT Q24H [facility] Last Admin: 02/07/17 18:50 Dose: 40 mg Azithromycin 500 mg/ Sodium (Chloride) 250 mls @ 250 mls/hr IV Q24H [facility] Last Admin: 02/07/17 13:52 Dose: 250 mls/hr Ceftriaxone Sodium 2 gm/ (Sodium Chloride) 100 mls @ 200 mls/hr IV Q24H [facility] Last Admin: 02/08/17 08:17 Dose: 200 mls/hr Losartan Potassium (Cozaar) 50 mg PO BID [facility] Last Admin: 02/08/17 08:16 Dose: 50 mg Methylprednisolone Sodium Succinate (Solu-Medrol) 80 mg IVPUSH Q8H [facility] Last Admin: 02/08/17 11:10 Dose: 80 mg Sodium Chloride (Saline Flush) 10 ml FLUSH ONETIME PRN PRN Reason: IV FLUSH Last Admin: 02/06/17 13:24 Dose: 10 ml Discontinued Medications Albuterol/Ipratropium (Duoneb 3.0-0.5 Mg/3 Ml) 3 ml NEB ONETIME ONE Stop: 02/06/17 10:56 Last Admin: 02/06/17 11:11 Dose: 3 ml Ceftriaxone Sodium (Rocephin) 1,000 mg IVPUSH ONETIME ONE Stop: 02/06/17 14:31 Last Admin: 02/06/17 14:38 Dose: Not Given Sodium Chloride (Normal Saline) 100 mls @ 80 mls/hr IV ASDIRECTED [facility] Last Admin: 02/06/17 13:24 Dose: 80 mls/hr Ceftriaxone Sodium 1 gm/ (Sodium Chloride) 100 mls @ 200 mls/hr IV ONETIME ONE Stop: 02/06/17 15:05 Last Admin: 02/06/17 15:16 Dose: 200 mls/hr Azithromycin 500 mg/ Sodium (Chloride) 250 mls @ 250 mls/hr IV ONETIME ONE Stop: 02/06/17 15:36 Last Admin: 02/06/17 16:16 Dose: 250 mls/hr Sodium Chloride (Normal Saline) 1,000 mls @ 75 mls/hr IV ASDIRECTED JILLIAN Stop: 02/07/17 01:00 Last Admin: 02/06/17 20:28 Dose: 75 mls/hr Iopamidol (Isovue-370 (76%)) 100 ml IVPUSH ONETIME ONE Stop: 02/06/17 13:07 Last Admin: 02/06/17 13:24 Dose: 60 ml - Exam Quality Assessment: Supplemental Oxygen, DVT Prophylaxis General: Alert, Oriented, Cooperative HEENT: Pupils Equal, Pupils Reactive, EOMI, Mucous Membr. Moist/[place] Neck: Supple, Trachea Midline, No JVD Lungs: Normal Respiratory Effort, Decreased Breath Sounds Cardiovascular: Regular Rate, Regular Rhythm GI/Abdominal Exam: Normal Bowel Sounds, Soft, Non-Tender, No Organomegaly, No Distention (Female) Exam: Deferred Back Exam: Normal Inspection Extremities: Normal Inspection, No Pedal Edema Skin: Warm Neurological: No New Focal Deficit, Normal Gait, Normal Speech Psy/Mental Status: Alert, Normal Affect, Normal Mood - Problem List & Annotations (1) Pneumonia SNOMED Code(s): 792526835 Code(s): J18.9 - PNEUMONIA, UNSPECIFIED ORGANISM Status: Acute Current Visit: Yes (2) Colorectal cancer, stage II SNOMED Code(s): 93508905, 00134511 Code(s): C19 - MALIGNANT NEOPLASM OF RECTOSIGMOID [place]UN[place] Status: Acute Current Visit: Yes (3) Hypertension SNOMED Code(s): 67372263 Code(s): I10 - ESSENTIAL (PRIMARY) HYPERTENSION Status: Acute Current Visit: Yes (4) Hypoxia SNOMED Code(s): 756700963, 948533248 Code(s): R09.02 - HYPOXEMIA Status: Acute Current Visit: Yes (5) Shortness of breath SNOMED Code(s): 723714785 Code(s): R06.02 - SHORTNESS OF BREATH Status: Acute Current Visit: Yes - Problem List Review Problem List Initiated/Reviewed/Updated: Yes - My Orders Last 24 Hours: My Active Orders 02/07/17 14:00 Azithromycin [Zithromax] 500 mg Sodium Chloride 0.9% [Normal Saline] 250 ml IV Q24H 02/07/17 17:30 Ambulate [RC] QID 02/07/17 17:47 Antiembolic Devices [RC] PER UNIT ROUTINE ROSALIND Hose [Antiembolic Hose] [OM.PC] Routine 02/07/17 18:00 Enoxaparin [Lovenox] 40 mg SUBCUT Q24H 02/08/17 10:30 methylPREDNISolone Sod Succ [Solu-MEDROL] 80 mg IVPUSH Q8H 02/09/17 05:00 BMP [BASIC METABOLIC PANEL,BMP] [CHEM] DAILY CBC WITH AUTO DIFF [HEME] DAILY CRP [C-REACTIVE PROTEIN] [CHEM] DAILY MAGNESIUM [CHEM] DAILY 02/09/17 08:00 CXR [Chest 2V] [CR] Routine 02/10/17 05:00 BMP [BASIC METABOLIC PANEL,BMP] [CHEM] DAILY CBC WITH AUTO DIFF [HEME] DAILY CRP [C-REACTIVE PROTEIN] [CHEM] DAILY MAGNESIUM [CHEM] DAILY 02/11/17 05:00 BMP [BASIC METABOLIC PANEL,BMP] [CHEM] DAILY CBC WITH AUTO DIFF [HEME] DAILY CRP [C-REACTIVE PROTEIN] [CHEM] DAILY MAGNESIUM [CHEM] DAILY - Plan Plan:: Impression: Hypoxia/empiric Rx for PNA; CTA was unremarkable Zithromax/Rocephin; minimal improvement for )2 requirement HTN-multiple meds Former smoker History of Colorectal Cancer, stage II Borderline UTI Anemia, macrocytosis Plan: IV antibiotics Nebs Add IV steroids O2, keep Sat>92 % Habitrol as needed DVT prophylaxis Home meds Daily labs SW/PT/OT consults LOS>96 hours expected with slow response to therapy
[2017-02-08] MEDS: Azithromycin 500 MG in Sodium Chloride 0.9% 250 ML IV SCH (14:03)
[2017-02-08] MEDS: Enoxaparin 40 MG/0.4 ML Syringe SUBCUT SCH (17:30)
[2017-02-09] MEDS: methylPREDNISolone Sodium Succinate 125 MG/2 ML SDV IVPUSH SCH ×3 (02:56→17:41)
[2017-02-09] MEDS: Albuterol/Ipratropium 3.0-0.5 MG/3 ML Neb Soln NEB SCH ×4 (06:55→21:05)
--- NOTE | 2017-02-09 07:31 | PCM.PN ---
- General Info Date of Service: 02/09/17 Admission Dx/Problem (Free Text): Admission Diagnosis/Problem Admission Diagnosis/Problem Hypoxia--Pneumonia Patient doing much better; hypoxia improving, able to wean down on supplemental oxygen this morning. No pain or concerns this morning. slept well last evening. Energy slightly improved. Appetite good, no n/v/d. Functional Status: Reports: Pain Controlled, Tolerating Diet, Ambulating, Urinating, Incentive Spirometry. Denies: New Symptoms - Review of Systems General: Reports: Weakness (improving), Fatigue (slightly improved). Denies: Fever HEENT: Reports: No Symptoms Pulmonary: Reports: Shortness of Breath. Denies: Pleuritic Chest Pain, Cough, Sputum, Wheezing Cardiovascular: Reports: No Symptoms. Denies: Chest Pain, Palpitations, Dyspnea on Exertion Gastrointestinal: Reports: No Symptoms Genitourinary: Reports: No Symptoms Neurological: Reports: No Symptoms Psychiatric: Reports: No Symptoms - Patient Data Vitals - Most Recent: Last Vital Signs Temp 98.6 F 02/09/17 02:58 Pulse 84 02/09/17 02:58 Resp 14 02/09/17 02:58 BP 122/76 02/09/17 02:58 Pulse Ox 97 02/09/17 06:56 Weight - Most Recent: 166 lb 8 oz I&O - Last 24 Hours: Intake & Output 02/08/17 02/09/17 02/09/17 22:59 06:59 14:59 Intake Total 1100 600 Output Total 1200 1000 Balance -100 -400 Lab Results Last 24 Hours: Laboratory Results - last 24 hr 02/09/17 02/09/17 Range/Units 05:25 05:25 WBC 7.45 (3.98-10.04) K/mm3 RBC 3.02 L (3.98-5.22) M/mm3 Hgb 10.4 L (11.2-15.7) gm/L Hct 32.5 L (34.1-44.9) % MCV 107.6 H (79.4-94.8) fl MCH 34.4 H (25.6-32.2) pg MCHC 32.0 L (32.2-35.5) g/dl RDW Std Deviation 55.5 H (36.4-46.3) fL Plt Count 317 (182-369) K/mm3 MPV 9.4 (9.4-12.3) fl Neut % (Auto) 95.0 H (34.0-71.1) % Lymph % (Auto) 3.5 L (19.3-51.7) % [place] % (Auto) 1.3 L (4.7-12.5) % Eos % (Auto) 0 L (0.7-5.8) Baso % (Auto) 0.1 (0.1-1.2) % Neut # (Auto) 7.07 H (1.56-6.13) K/mm3 Lymph # (Auto) 0.26 L (1.18-3.74) K/mm3 [place] # (Auto) 0.10 L (0.24-0.36) K/mm3 Eos # (Auto) 0.00 L (0.04-0.36) K/mm3 Baso # (Auto) 0.01 (0.01-0.08) K/mm3 Sodium 140 (136-145) mEq/L Potassium 4.1 (3.5-5.1) mEq/L Chloride 106 (98-107) mEq/L Carbon Dioxide 25 (21-32) mEq/L Anion Gap 13.1 (5-15) BUN 15 (7-18) mg/dL Creatinine 0.9 (0.55-1.02) mg/dL Est Cr Clr Drug Dosing 56.68 mL/min Estimated GFR (MDRD) > 60 (>60) mL/min BUN/Creatinine Ratio 16.7 (14-18) Glucose 151 H (80-115) mg/dL Calcium 9.2 (8.5-10.1) mg/dL Magnesium 2.1 (1.8-2.4) mg/dl C-Reactive Protein 2.4 H* (<1.0) mg/dL [place] Results Last 24 Hours: Microbiology 02/08/17 16:33 Gram Stain - Final Sputum - Expectorated Sputum Culture - Final 02/06/17 15:15 Aerobic Blood Culture - Preliminary Blood - Venous - Lab Draw NO GROWTH AFTER 2 DAYS Anaerobic Blood Culture - Preliminary NO GROWTH AFTER 2 DAYS 02/06/17 15:10 Aerobic Blood Culture - Preliminary Blood - Venous NO GROWTH AFTER 2 DAYS Anaerobic Blood Culture - Preliminary NO GROWTH AFTER 2 DAYS 02/06/17 16:00 Urine Culture - Final Urine, Clean Catch Med Orders - Current: Current Medications Acetaminophen (Tylenol) 650 mg PO Q6H PRN PRN Reason: Pain (moderate 4-6) Albuterol (Proventil Neb Soln) 2.5 mg NEB Q4HRRT PRN PRN Reason: Shortness of Breath Albuterol/Ipratropium (Duoneb 3.0-0.5 Mg/3 Ml) 3 ml NEB QIDRT [facility] Last Admin: 02/09/17 06:55 Dose: 3 ml Amlodipine Besylate (Norvasc) 10 mg PO DAILY [facility] Last Admin: 02/08/17 08:15 Dose: 10 mg Aspirin (Halfprin) 81 mg PO DAILY [facility] Last Admin: 02/08/17 08:13 Dose: 81 mg Enoxaparin Sodium (Lovenox) 40 mg SUBCUT Q24H [facility] Last Admin: 02/08/17 17:30 Dose: 40 mg Azithromycin 500 mg/ Sodium (Chloride) 250 mls @ 250 mls/hr IV Q24H [facility] Last Admin: 02/08/17 14:03 Dose: 250 mls/hr Ceftriaxone Sodium 2 gm/ (Sodium Chloride) 100 mls @ 200 mls/hr IV Q24H [facility] Last Admin: 02/08/17 08:17 Dose: 200 mls/hr Losartan Potassium (Cozaar) 50 mg PO BID [facility] Last Admin: 02/08/17 20:38 Dose: 50 mg Methylprednisolone Sodium Succinate (Solu-Medrol) 80 mg IVPUSH Q8H [facility] Last Admin: 02/09/17 02:56 Dose: 80 mg Sodium Chloride (Saline Flush) 10 ml FLUSH ONETIME PRN PRN Reason: IV FLUSH Last Admin: 02/06/17 13:24 Dose: 10 ml Discontinued Medications Albuterol/Ipratropium (Duoneb 3.0-0.5 Mg/3 Ml) 3 ml NEB ONETIME ONE Stop: 02/06/17 10:56 Last Admin: 02/06/17 11:11 Dose: 3 ml Ceftriaxone Sodium (Rocephin) 1,000 mg IVPUSH ONETIME ONE Stop: 02/06/17 14:31 Last Admin: 02/06/17 14:38 Dose: Not Given Sodium Chloride (Normal Saline) 100 mls @ 80 mls/hr IV ASDIRECTED [facility] Last Admin: 02/06/17 13:24 Dose: 80 mls/hr Ceftriaxone Sodium 1 gm/ (Sodium Chloride) 100 mls @ 200 mls/hr IV ONETIME ONE Stop: 02/06/17 15:05 Last Admin: 02/06/17 15:16 Dose: 200 mls/hr Azithromycin 500 mg/ Sodium (Chloride) 250 mls @ 250 mls/hr IV ONETIME ONE Stop: 02/06/17 15:36 Last Admin: 02/06/17 16:16 Dose: 250 mls/hr Sodium Chloride (Normal Saline) 1,000 mls @ 75 mls/hr IV ASDIRECTED [facility] Stop: 02/07/17 01:00 Last Admin: 02/06/17 20:28 Dose: 75 mls/hr Iopamidol (Isovue-370 (76%)) 100 ml IVPUSH ONETIME ONE Stop: 02/06/17 13:07 Last Admin: 02/06/17 13:24 Dose: 60 ml - Exam Quality Assessment: Supplemental Oxygen, DVT Prophylaxis General: Alert, Oriented, Cooperative, No Acute Distress HEENT: Pupils Equal, Pupils Reactive, EOMI, Mucous Membr. Moist/[place] Neck: Supple Lungs: Clear to Auscultation, Normal Respiratory Effort, Decreased Breath Sounds (throughout) Cardiovascular: Regular Rate, Regular Rhythm GI/Abdominal Exam: Normal Bowel Sounds, Soft, Non-Tender, No Organomegaly (Female) Exam: Deferred Extremities: Normal Inspection, No Pedal Edema Peripheral Pulses: 2+: Dorsalis Pedis (L), Dorsalis Pedis (R) Skin: Warm, Dry, Intact Neurological: No New Focal Deficit Psy/Mental Status: Alert, Normal Affect, Normal Mood - Problem List & Annotations (1) Pneumonia SNOMED Code(s): 783103229 Code(s): J18.9 - PNEUMONIA, UNSPECIFIED ORGANISM Status: Acute Priority: High Current Visit: Yes Qualifiers: Pneumonia type: due to unspecified organism (2) Hypoxia SNOMED Code(s): 150043885, 629052384 Code(s): R09.02 - HYPOXEMIA Status: Acute Priority: High Current Visit : Yes (3) Hypertension SNOMED Code(s): 91454155 Code(s): I10 - ESSENTIAL (PRIMARY) HYPERTENSION Status: Chronic Priority : Medium Current Visit: Yes Qualifiers: Hypertension type: essential hypertension Qualified Code(s): I10 - Essential (primary) hypertension (4) Colorectal cancer, stage II SNOMED Code(s): 88005571, 62978611 Code(s): C19 - MALIGNANT NEOPLASM OF RECTOSIGMOID JUNCTION Status: Chronic Priority: Medium Current Visit: No (5) Macrocytosis SNOMED Code(s): 129462269 Code(s): D75.89 - OTHER SPECIFIED DISEASES OF BLOOD AND BLOOD-FORMING ORGANS Status: Acute Priority: High Current Visit: Yes (6) B12 deficiency anemia SNOMED Code(s): 36347576, 621409018 Code(s): D51.9 - VITAMIN B12 DEFICIENCY ANEMIA, UNSPECIFIED Status: Acute Priority: High Current Visit: Yes Qualifiers: Vitamin B12 deficiency anemia type: unspecified B12 deficiency Qualified Code(s): D51.9 - Vitamin B12 deficiency anemia, unspecified - Problem List Review Problem List Initiated/Reviewed/Updated: Yes - Plan Plan:: Impression: Hypoxia/empiric Rx for PNA; CTA was unremarkable -Zithromax/Rocephin; minimal improvement -Improvement since starting solumedrol -Wean oxygen as able, at 97% at 3L this am -Repeat CXR today--pending -Negative sputum and BC thus far -Echo obtained: EF of 60-65% with grade 1 diastolic dysfunction, no concerning valvular dysfunction HTN-multiple meds--stable Former smoker--quit 4+ months ago History of Colorectal Cancer, stage II--completed chemo and radiation. Dr. Ruiz is primary Oncologist. Will arrange for follow up later this week after discharge. Borderline UTI--on rocephin -Negative UC thus far Anemia, macrocytosis; Hgb 10.4 today -B12 level low at 180 -Will start on B12 injections today -Supervisor Knitting consult Plan: IV antibiotics Nebs and aggressive pulmonary toilet Add IV steroids O2, keep Sat>92 % Habitrol as needed DVT and GI prophylaxis Home meds Daily labs SW/PT/OT consults LOS>96 hours expected with slow response to therapy--likely DC in next 48 hours if able to wean from oxygen.
[2017-02-09] MEDS: cefTRIAXone 2 GM in Sodium Chloride 0.9% 100 ML IV SCH (09:43)
[2017-02-09] MEDS: Losartan 100 MG Tab PO SCH ×2 (09:48→20:44)
[2017-02-09] MEDS: Aspirin 81 MG Tab.EC PO SCH (09:49)
[2017-02-09] MEDS: amLODIPine 10 MG Tab PO SCH (09:49)
[2017-02-09] MEDS: Cyanocobalamin (Vitamin B12) 1,000 MCG/ML SDV SUBCUT SCH (12:38)
[2017-02-09] MEDS: Azithromycin 500 MG in Sodium Chloride 0.9% 250 ML IV SCH (13:51)
--- NOTE | 2017-02-09 13:58 | CR ---
Chest: Two views of the chest were obtained. Comparison: Previous chest x-ray of 02/06/17. Heart size appears within normal limits. Tortuous thoracic aorta is seen. Left-sided infusion catheter is seen and remains stable. Small bilateral pleural effusions are again seen. Central lung markings are mildly increased but less prominent than on prior study which likely represents the differences between technique. Bony structures are unremarkable for the patient's age. Surgical clips are seen from prior cholecystectomy. Impression: 1. Small bilateral pleural effusions are again seen. 2. Slight increased central pulmonary markings which are felt to be fairly stable from prior study when allowing for differences in technique. 3. Other incidental findings which are stable. Diagnostic code #3
[2017-02-09] MEDS: Enoxaparin 40 MG/0.4 ML Syringe SUBCUT SCH (17:41)
[2017-02-10] MEDS: methylPREDNISolone Sodium Succinate 125 MG/2 ML SDV IVPUSH SCH ×2 (02:53→10:54)
[2017-02-10] MEDS: Albuterol/Ipratropium 3.0-0.5 MG/3 ML Neb Soln NEB SCH ×2 (06:51→09:51)
[2017-02-10] MEDS: amLODIPine 10 MG Tab PO SCH (08:16)
[2017-02-10] MEDS: Losartan 100 MG Tab PO SCH (08:16)
[2017-02-10] MEDS: Aspirin 81 MG Tab.EC PO SCH (08:16)
[2017-02-10 08:17] VITALS: BP 133/78
[2017-02-10] MEDS: Cyanocobalamin (Vitamin B12) 1,000 MCG/ML SDV SUBCUT SCH (08:17)
--- NOTE | 2017-02-10 10:47 | PCM.DCSUM1 ---
Discharge Summary - Hospital Course Brief History: This is a 61 year old female with past medical hx/o colorectal CA , stage II Status post chemo/radiation therapy who has not been feeling well for the past few weeks; presented to ED with complaints of SOB and was admitted for medical management of pneumonia. - Discharge Data Discharge Date: 02/10/17 Discharge Disposition: Home, Self-Care 01 Condition: Good - Discharge Diagnosis/Problem(s) (1) Pleural effusion due to another disorder SNOMED Code(s): 41921827 ICD Code: J90 - PLEURAL EFFUSION, NOT ELSEWHERE CLASSIFIED Status: Acute (2) Atelectasis of both lungs SNOMED Code(s): 36044039 ICD Code: J98.11 - ATELECTASIS Status: Acute (3) Hypoxia SNOMED Code(s): 774925949, 570811847 ICD Code: R09.02 - HYPOXEMIA Status: Acute Priority: High (4) B12 deficiency anemia SNOMED Code(s): 40607851, 288609033 ICD Code: D51.9 - VITAMIN B12 DEFICIENCY ANEMIA, UNSPECIFIED Status: Acute Priority: High Qualifiers: Vitamin B12 deficiency anemia type: other B12 deficiency Qualified Code(s) : D51.8 - Other vitamin B12 deficiency anemias (5) Shortness of breath SNOMED Code(s): 802524388 ICD Code: R06.02 - SHORTNESS OF BREATH Status: Resolved (6) Colorectal cancer, stage II SNOMED Code(s): 08789086, 91679763 ICD Code: C19 - MALIGNANT NEOPLASM OF RECTOSIGMOID JUNCTION Status: Chronic Priority: Medium (7) Status post chemotherapy SNOMED Code(s): 439045033 ICD Code: Z92.21 - PERSONAL HISTORY OF ANTINEOPLASTIC CHEMOTHERAPY Status: Inactive (8) Allergic reaction SNOMED Code(s): 669874502 ICD Code: T78.40XA - ALLERGY, UNSPECIFIED, INITIAL ENCOUNTER Status: Resolved Qualifiers: Encounter type: initial encounter Qualified Code(s): T78.40XA - Allergy, unspecified, initial encounter - Patient Summary/Data Operative Procedure(s) Performed: None Complications: None Consults: Consultations 02/09/17 10:46 Consult to Dietary [Consult to Plate Former] [CONS] Routine Labs Pending at D/C: Vit B12 in 3 months Hospital Course: Patient was admitted and medically managed with presumptive diagnosis of pneumonia. Her CTA showed no PE however she was noted for small bilateral pleural effusions. She received initial treatment to include intravenous antibiotics, bronchodilators, IV solu-medrol and supplemental O2 to improve her symptoms. Patient improved on the above regimen. Her hospital course was uncomplicated. However she was found to have B12 deficiency and therefore treatment was started here with subcutaneous injection. We felt patient did not have pneumonia but rather developed adverse reaction post chemotherapy which led to her difficulty breathing i.e. hypoxia in the setting of pulmonary congestion and pleural effusions. Her 2D echo was fairly benign. Patient is now stable for discharge. She requires supplemental O2 but we expect she will come off of it as her lungs get better in the near future. She is to continue with routine respiratory care through incentive spirometry and flutter valve as directed. She will have additional course of azithromycin for anti- inflammatory agent along with medrol dose pack. Patient will be doing outpatient subcutaneous indigestion for her B12 anemia. And lastly, she will have PRN Lasix and Douneb Inhaler for shortness of breath. Patient was advised to come back or seek immediate care should her symptom persists or gets worse. She is to call her primary care doctor for any questions or concerns right after discharge. Patient expressed understanding and in agreement with the plans as discussed above. All questions were answered. Dr. Duran was called and updated regarding discharge care plan on the day of discharge. - Patient Instructions Diet: Usual Diet as Tolerated Activity: As Tolerated Driving: Do Not Drive Showering/Bathing: May Shower Notify Provider of: Fever, Nausea and/or Vomiting Other/Special Instructions: - Please take all medications as directed. - Follow up B12 level in 3 months. - Call you doctor for any questions or concerns after discharge. - Come back or seek immediate care should your symptom persists or gets worse - Discharge Plan Prescriptions/Med Rec: Azithromycin 500 mg PO DAILY #2 tablet Cyanocobalamin (Vitamin B-12) [Cyanocobalamin Injection] 1,000 mcg IJ DAILY #8 ml Furosemide [Lasix] 40 mg PO DAILY PRN #7 tablet PRN Reason: Other methylPREDNISolone [Medrol] 4 mg PO ASDIRECTED #1 dosepk Home Medications: Home Meds Aspirin [Halfprin] 81 mg PO DAILY 02/06/17 [History] Ibuprofen [Advil] 200 mg PO Q6H PRN 02/06/17 [History] Losartan [Cozaar] 100 mg PO DAILY 02/06/17 [History] amLODIPine [Norvasc] 10 mg PO DAILY 02/06/17 [History] Azithromycin 500 mg PO DAILY #2 tablet 02/10/17 [Rx] Cyanocobalamin (Vitamin B-12) [Cyanocobalamin Injection] 1,000 mcg IJ DAILY #8 ml 02/10/17 [Rx] Furosemide [Lasix] 40 mg PO DAILY PRN #7 tablet 02/10/17 [Rx] methylPREDNISolone [Medrol] 4 mg PO ASDIRECTED #1 dosepk 02/10/17 [Rx] Albuterol/Ipratropium [Take Home: Albuterol/Ipratropium 4 GM Inhaler] 1 packet INH ASDIRECTED PRN 02/11/17 [History] Patient Handouts: Shortness of Breath, [id number], Hypoxemia, Vitamin B12 Deficiency, [id number], Cyanocobalamin, Vitamin B12 injection Referrals: Mila Howell MD [Ordering Only Provider] - 02/25/17 11:30 am (appt. for CT Scan is schedule for at 8:30, labs at 8:00) Greg Duran MD [Primary Care Provider] - (Please follow-up with your primary care doctor, Dr. Duran within 1 week. ) - Discharge Summary/Plan Comment DC Time >30 min.: Yes (45 mins) Discharge Summary/Plan Comment: Discharge to Home - General Info Date of Service: 02/10/17 Admission Dx/Problem (Free Text: Admission Diagnosis/Problem Admission Diagnosis/Problem Hypoxia--Pneumonia Patient doing much better; hypoxia improving, able to wean down on supplemental oxygen this morning. No pain or concerns this morning. slept well last evening. Energy slightly improved. Appetite good, no n/v/d. Subjective Update: Follow Up Functional Status: Reports: Pain Controlled, Tolerating Diet, Ambulating, Urinating, New Symptoms, Incentive Spirometry - Review of Systems General: Denies: Fever, Weakness, Fatigue, Chills HEENT: Reports: No Symptoms Pulmonary: Reports: Shortness of Breath Cardiovascular: Denies: Chest Pain, Palpitations, Dyspnea on Exertion, Orthopnea Gastrointestinal: Denies: Abdominal Pain, Nausea, Vomiting Genitourinary: Reports: No Symptoms Musculoskeletal: Reports: No Symptoms Skin: Denies: Cyanosis Neurological: Denies: Syncope, Difficulty Walking, Weakness Psychiatric: Reports: Mood Lability. Denies: Depression, Anxiety, Agitation, Hallucinations, Suicidal Ideation Systems Review Comment: No overnight or acute issues. She is doing relatively well. She is ready to go home. She has no new complaints. - Patient Data Vitals - Most Recent: Last Vital Signs Temp 36.3 C 02/10/17 08:15 Pulse 88 02/10/17 08:15 Resp 16 02/10/17 08:15 BP 133/78 02/10/17 08:16 Pulse Ox 96 02/10/17 09:52 Weight - Most Recent: 76.566 kg I&O - Last 24 hours: Intake & Output 02/09/17 02/10/17 02/10/17 22:59 06:59 14:59 Intake Total 1730 700 300 Output Total 900 1200 Balance 830 -500 300 Lab Results - Last 24 hrs: Laboratory Results - last 24 hr 02/09/17 02/10/17 02/10/17 Range/Units 05:25 06:38 06:38 WBC 11.34 H (3.98-10.04) K/mm3 RBC 2.91 L (3.98-5.22) M/mm3 Hgb 10.1 L (11.2-15.7) gm/L Hct 31.5 L (34.1-44.9) % MCV 108.2 H (79.4-94.8) fl MCH 34.7 H (25.6-32.2) pg MCHC 32.1 L (32.2-35.5) g/dl RDW Std Deviation 55.3 H (36.4-46.3) fL Plt Count 304 (182-369) K/mm3 MPV 9.2 L (9.4-12.3) fl Neut % (Auto) 95.2 H (34.0-71.1) % Lymph % (Auto) 2.6 L (19.3-51.7) % [place] % (Auto) 1.9 L (4.7-12.5) % Eos % (Auto) 0 L (0.7-5.8) Baso % (Auto) 0.0 L (0.1-1.2) % Neut # (Auto) 10.81 H (1.56-6.13) K/mm3 Lymph # (Auto) 0.29 L (1.18-3.74) K/mm3 [place] # (Auto) 0.21 L (0.24-0.36) K/mm3 Eos # (Auto) 0.00 L (0.04-0.36) K/mm3 Baso # (Auto) 0.00 L (0.01-0.08) K/mm3 Manual Slide Review Abnormal smear Sodium 139 (136-145) mEq/L Potassium 4.2 (3.5-5.1) mEq/L Chloride 105 (98-107) mEq/L Carbon Dioxide 27 (21-32) mEq/L Anion Gap 11.2 (5-15) BUN 24 H (7-18) mg/dL Creatinine 0.9 (0.55-1.02) mg/dL Est Cr Clr Drug Dosing 56.68 mL/min Estimated GFR (MDRD) > 60 (>60) mL/min BUN/Creatinine Ratio 26.7 H (14-18) Glucose 162 H (80-115) mg/dL Hemoglobin A1c 5.50 (4.50-6.20) % Calcium 9.3 (8.5-10.1) mg/dL Magnesium 2.2 (1.8-2.4) mg/dl C-Reactive Protein < 0.2 (<1.0) mg/dL MENDEL Results - Last 24 hrs: Microbiology 02/06/17 16:00 Streptococcus pneumoniae Antigen (M - Final Urine - Ureter, Unspecified 02/06/17 15:15 Aerobic Blood Culture - Preliminary Blood - Venous - Lab Draw NO GROWTH AFTER 3 DAYS Anaerobic Blood Culture - Preliminary NO GROWTH AFTER 3 DAYS 02/06/17 15:10 Aerobic Blood Culture - Preliminary Blood - Venous NO GROWTH AFTER 3 DAYS Anaerobic Blood Culture - Preliminary NO GROWTH AFTER 3 DAYS Med Orders - Current: Current Medications Acetaminophen (Tylenol) 650 mg PO Q6H PRN PRN Reason: Pain (moderate 4-6) Albuterol (Proventil Neb Soln) 2.5 mg NEB Q4HRRT PRN PRN Reason: Shortness of Breath Albuterol/Ipratropium (Duoneb 3.0-0.5 Mg/3 Ml) 3 ml NEB QIDRT [facility] Last Admin: 02/10/17 09:51 Dose: 3 ml Amlodipine Besylate (Norvasc) 10 mg PO DAILY [facility] Last Admin: 02/10/17 08:16 Dose: 10 mg Aspirin (Halfprin) 81 mg PO DAILY [facility] Last Admin: 02/10/17 08:16 Dose: 81 mg Cyanocobalamin (Vitamin B12) 1,000 mcg SUBCUT DAILY [facility] Stop: 02/15/17 09:01 Last Admin: 02/10/17 08:17 Dose: 1,000 mcg Cyanocobalamin (Vitamin B12) 1,000 mcg SUBCUT Q30D [facility] Enoxaparin Sodium (Lovenox) 40 mg SUBCUT Q24H [facility] Last Admin: 02/09/17 17:41 Dose: 40 mg Azithromycin 500 mg/ Sodium (Chloride) 250 mls @ 250 mls/hr IV Q24H [facility] Last Admin: 02/09/17 13:51 Dose: 250 mls/hr Losartan Potassium (Cozaar) 50 mg PO BID [facility] Last Admin: 02/10/17 08:16 Dose: 50 mg Methylprednisolone Sodium Succinate (Solu-Medrol) 80 mg IVPUSH Q8H [facility] Last Admin: 02/10/17 02:53 Dose: 80 mg Sodium Chloride (Saline Flush) 10 ml FLUSH ONETIME PRN PRN Reason: IV FLUSH Last Admin: 02/06/17 13:24 Dose: 10 ml Discontinued Medications Albuterol/Ipratropium (Duoneb 3.0-0.5 Mg/3 Ml) 3 ml NEB ONETIME ONE Stop: 02/06/17 10:56 Last Admin: 02/06/17 11:11 Dose: 3 ml Ceftriaxone Sodium (Rocephin) 1,000 mg IVPUSH ONETIME ONE Stop: 02/06/17 14:31 Last Admin: 02/06/17 14:38 Dose: Not Given Sodium Chloride (Normal Saline) 100 mls @ 80 mls/hr IV ASDIRECTED [facility] Last Admin: 02/06/17 13:24 Dose: 80 mls/hr Ceftriaxone Sodium 1 gm/ (Sodium Chloride) 100 mls @ 200 mls/hr IV ONETIME ONE Stop: 02/06/17 15:05 Last Admin: 02/06/17 15:16 Dose: 200 mls/hr Azithromycin 500 mg/ Sodium (Chloride) 250 mls @ 250 mls/hr IV ONETIME ONE Stop: 02/06/17 15:36 Last Admin: 02/06/17 16:16 Dose: 250 mls/hr Ceftriaxone Sodium 2 gm/ (Sodium Chloride) 100 mls @ 200 mls/hr IV Q24H [facility] Last Admin: 02/09/17 09:43 Dose: 200 mls/hr Sodium Chloride (Normal Saline) 1,000 mls @ 75 mls/hr IV ASDIRECTED [facility] Stop: 02/07/17 01:00 Last Admin: 02/06/17 20:28 Dose: 75 mls/hr Iopamidol (Isovue-370 (76%)) 100 ml IVPUSH ONETIME ONE Stop: 02/06/17 13:07 Last Admin: 02/06/17 13:24 Dose: 60 ml - Exam Quality Assessment: Reports: Supplemental Oxygen General: Reports: Alert, Oriented, Cooperative, No Acute Distress, Mild Distress HEENT: Reports: Pupils Equal, Pupils Reactive, EOMI, Mucous Membr. Moist/[place] Lungs: Reports: Normal Respiratory Effort, Crackles Cardiovascular: Reports: Regular Rate, Regular Rhythm GI/Abdominal Exam: Normal Bowel Sounds, Soft, Non-Tender, No Organomegaly, No Distention, No Abnormal Bruit, No Mass (Female) Exam: Deferred Rectal (Female) Exam: Deferred Back Exam: Reports: Normal Inspection, Decreased Range of Motion Extremities: Normal Inspection, Normal Range of Motion, Non-Tender, No Pedal Edema, Normal Capillary Refill Skin: Reports: Warm, Dry, Intact Neurological: Reports: No New Focal Deficit Psy/Mental Status: Reports: Alert, Normal Affect, Normal Mood *Q Meaningful Use (DIS) - VTE *Q VTE Criteria *Q: - Stroke *Q Stroke Criteria *Q: - AMI *Q AMI Criteria *Q:
[2017-03-18] MEDS ORDERED: Cyanocobalamin (Vitamin B12) 1,000 MCG/ML SDV SUBCUT SCH (09:00)
== END 2017-02-10 13:55 | disposition home or self-care (01) | DRG 187 ==
LOC: JD.ED 10:15 → JD.MS 14:33
PROVIDERS: ADMIT Internal Medicine Cardiovascular Disease; ATTEND Internal Medicine Cardiovascular Disease
DX: J90 Pleural effusion, not elsewhere classified (principal); J98.11 Atelectasis; C19 Malignant neoplasm of rectosigmoid junction; T45.1X5A Adverse effect of antineoplastic and immunosuppressive drugs, initial encounter; Y92.019 Unspecified place in single-family (private) house as the place of occurrence of the external cause; R09.02 Hypoxemia; D51.8 Other vitamin B12 deficiency anemias; I10 Essential (primary) hypertension; Z92.21 Personal history of antineoplastic chemotherapy; Z79.899 Other long term (current) drug therapy; Z87.891 Personal history of nicotine dependence
CPT/HCPCS: 36415; 36569; 36600; 71010; 71010-26; 71020; 71020-26; 71275; 71275-26; 80048; 80053; 81001; 82607; 82746; 82803; 83036; 83735; 83880; 84484; 85025; 85610; 85730; 86140; 86738; 87040; 87086; 87205; 87899; 93005; 93306; 94620; 94640-76; 94664; 94667; 94668; 94760; 94761; 96365; 99284; 99285-25; A9270-GY; J0456; J0696; J1642; J1650; J2930; J3420; J7030; J7040; J7050; Q9967

== ENCOUNTER 2021-10-08 19:07 | Emergency (ER) | payer SELFPAY ==
[2021-10-08 19:17] VITALS: BP 159/90; PULSE 95
[2021-10-08] MEDS ORDERED: Lidocaine 2% Jelly 10 ML Urojet MUCMEM ONE (19:37)
[2021-10-08] MEDS ORDERED: Magnesium Citrate Solution 296 ML Bottle PO ONE (20:10)
[2021-10-08] MEDS ORDERED: Dicyclomine 10 MG Cap PO ONE (20:24)
== END 2021-10-08 22:04 | disposition home or self-care (01) ==
LOC: JD.ED 19:07
DX: K59.03 Drug induced constipation (principal); T50.905A Adverse effect of unspecified drugs, medicaments and biological substances, initial encounter; I10 Essential (primary) hypertension; J44.9 Chronic obstructive pulmonary disease, unspecified; K21.9 Gastro-esophageal reflux disease without esophagitis; Z91.018 Allergy to other foods; Z79.82 Long term (current) use of aspirin; Z79.899 Other long term (current) drug therapy; Z72.0 Tobacco use
CPT/HCPCS: 74019; 99283; A9270

== ENCOUNTER 2023-09-26 08:36 | Emergency (ER) | payer MEDICARE, OTHER ==
[2023-09-26] MEDS: Albuterol/Ipratropium 3.0-0.5 MG/3 ML Neb Soln NEB ONE (09:10)
[2023-09-26] MEDS: Sodium Chloride 0.9% 10 ML Syringe FLUSH PRN (09:15)
[2023-09-26 09:21] LABS: BASE EXCESS ARTERIAL 1.6 (-2-2.0); BICARBONATE,ARTERIAL 27.7 meq/L (22.0-26.0); O2 SATURATION ARTERIAL 87.5 % (96.0-97.0); PCO2 ARTERIAL 52.4 mmHg (35.0-45.0)
[2023-09-26 09:23] LABS: BASOPHILS ABSOLUTE AUTO 0.1 K/mm3 (0.0-0.2); BASOPHILS PERCENT AUTO 0.8 % (0.0-1.0); EOSINOPHILS ABSOLUTE AUTO 0.3 K/mm3 (0.0-0.4); EOSINOPHILS PERCENT AUTO 4.1 % (0.0-6.0); HEMATOCRIT 40.5 % (37.0-47.0); HEMOGLOBIN 13.3 gm/dl (12.0-16.0); IMMATURE GRAN ABSOLUTE AUTO 0.02 K/mm3 (0.00-0.05); IMMATURE GRAN PERCENT AUTO 0.3 % (0.0-0.4); LYMPHOCYTES ABSOLUTE AUTO 1.3 K/mm3 (1.0-4.8); LYMPHOCYTES PERCENT AUTO 19.2 % (24.0-44.0); MEAN CORPUSCULAR HEMOGLOBIN 32.8 pg (28.0-32.0); MEAN CORPUSCULAR HGB CONC 32.8 g/dl (32.0-36.0); MEAN CORPUSCULAR VOLUME 99.8 fl (83.0-99.0); MONOCYTES ABSOLUTE AUTO 0.5 K/mm3 (0.0-0.8); MONOCYTES PERCENT AUTO 7.7 % (0.0-8.0); NEUTROPHILS ABSOLUTE AUTO 4.5 K/mm3 (1.8-7.7); NEUTROPHILS PERCENT AUTO 67.9 % (41.0-71.0); PLATELET COUNT,PLT 262 K/mm3 (150-400); RED BLOOD CELL COUNT 4.06 M/mm3 (4.10-5.30); WHITE BLOOD CELL COUNT,WBC 6.65 K/mm3 (3.9-11.3)
[2023-09-26] MEDS: methylPREDNISolone Sodium Succinate 125 MG/2 ML SDV IVPUSH ONE (09:34)
[2023-09-26 09:47] LABS: LACTIC ACID 0.9 mmol/L (0.4-2.0)
[2023-09-26 09:53] LABS: ALBUMIN 3.5 g/dl (3.4-5.0); ANION GAP 12.3 (5-15); BILIRUBIN TOTAL 0.5 mg/dL (0.2-1.0); BUN/CREATININE RATIO 16.7 (14-18); C-REACTIVE PROTEIN 0.66 mg/dL (<0.30); CALCIUM 8.9 mg/dL (8.5-10.1); CREATININE 0.9 mg/dL (0.55-1.02); EST CRCL DRUG DOSING (CG) 49.49 mL/min; MAGNESIUM 2.1 mg/dL (1.8-2.4); POTASSIUM,K 4.3 mEq/L (3.5-5.1); PROTEIN TOTAL,TP 7.2 g/dl (6.4-8.2)
[2023-09-26 10:06] LABS: APPEARANCE,URINE CLEAR (Clear); BILIRUBIN,URINE NEGATIVE (Negative); COLOR,URINE YELLOW (Yellow); GLUCOSE,URINE NEGATIVE (Negative); KETONES,URINE NEGATIVE (Negative); LEUKOCYTE ESTERASE,URINE 1+ (Negative); NITRITE,URINE NEGATIVE (Negative); OCCULT BLOOD,URINE NEGATIVE (Negative); PROTEIN,URINE NEGATIVE (Negative); UROBILINOGEN,URINE 0.2 (0.2-1.0)
[2023-09-26 10:11] LABS: CORONAVIRUS COVID-19 NAA NEGATIVE (NEGATIVE); INFLUENZA A NAA POSITIVE (NEGATIVE); RESPIRATORY SYNCYTIAL VIR NAA NEGATIVE (NEGATIVE)
[2023-09-26 10:26] LABS: BACTERIA,URINE FEW /hpf (FEW); MUCUS,URINE MODERATE /hpf (FEW); RBC,URINE 0-5 /hpf (0-5); SQUAMOUS EPITHELIAL CELLS,UR 0-5 /hpf (0-5)
[2023-09-26] MEDS: Azithromycin 250 MG Tab PO STA (11:07)
[2023-09-26] MEDS: Oseltamivir 75 MG Cap PO ONE (11:07)
[2023-09-26] MEDS: Albuterol 0.083% 2.5 MG/3 ML Neb Soln NEB ONE (11:35)
[2023-09-26 13:18] VITALS: BP 113/95; PULSE 98
== END 2023-09-26 13:18 | disposition home or self-care (01) ==
LOC: JD.ED 08:36
DX: J44.1 Chronic obstructive pulmonary disease with (acute) exacerbation (principal); J10.1 Influenza due to other identified influenza virus with other respiratory manifestations; I10 Essential (primary) hypertension; K21.9 Gastro-esophageal reflux disease without esophagitis; Z87.891 Personal history of nicotine dependence; Z90.410 Acquired total absence of pancreas; Z79.899 Other long term (current) drug therapy; Z91.018 Allergy to other foods
CPT/HCPCS: 0241U; 36415; 36600; 71045; 80053; 81001; 82803; 83605; 83735; 83880; 84484; 85025; 86140; 87040; 87086; 93005; 94640; 96374; 99285; A9270; J2930; J3490; 93010; 99284; J7620-GY